=== PATIENT | female | born 1955 | race Caucasian/White ===

== ENCOUNTER → 2020-04-03 | Outpatient (CLI) | payer OTHER ==
[~2020-04-03] MED LIST: AMIO100T4 PO; APIX5TAB PO; METO50TA82 PO; SACU1TAB PO; SPIR25TA5 PO
== END | disposition home or self-care (01) ==
LOC: CFH 09:53
PROVIDERS: ATTEND Internal Medicine Cardiovascular Disease
DX: I48.0 Paroxysmal atrial fibrillation (principal); K44.9 Diaphragmatic hernia without obstruction or gangrene
CPT/HCPCS: 71046